=== PATIENT | male | born 1980 | race Caucasian/White ===

== ENCOUNTER → 2018-05-17 | Outpatient (CLI) | payer OTHER ==
--- NOTE | 2018-05-18 06:48 | REP ---
RIGHT ANKLE, FOUR VIEWS: Four views of the right ankle are performed. There is mild diffuse soft tissue swelling. No acute fracture or dislocation is seen. The ankle mortise is anatomic. IMPRESSION: No acute fracture or dislocation. Electronically Signed by Griffin Kelley MD 05/18/2018 09:25 A
--- NOTE | 2018-05-18 06:49 | REP ---
RIGHT FOOT SERIES, FOUR VIEWS: There is no evidence of an acute fracture, dislocation or intrinsic bone disease. There is mild hallux valgus deformity. IMPRESSION: No fracture or dislocation. Electronically Signed by Griffin Kelley MD 05/18/2018 09:25 A
== END ==
LOC: M LRY 18:16
PROVIDERS: ATTEND Physician Assistant
DX: S99.921A Unspecified injury of right foot, initial encounter (principal); X58.XXXA Exposure to other specified factors, initial encounter; Y92.9 Unspecified place or not applicable
CPT/HCPCS: 73610; 73630; G0463